=== PATIENT | male | born 1975 | race Caucasian/White ===

== ENCOUNTER 2018-07-10 11:08 | Emergency (ER) | payer OTHER, SELFPAY ==
[2018-07-10 11:14] VITALS: BP 145/76; PULSE 75; RESP 21; TEMP 36.6; O2SAT 97
--- NOTE | 2018-07-10 11:28 | ED.ABDPAIN ---
HPI - Abdominal Pain General Chief Complaint: Abdominal Pain Stated Complaint: Sharp pain L side abdomen Time Seen by Provider: 07/10/18 11:18 Source: patient Mode of arrival: ambulatory Limitations: no limitations History of Present Illness HPI narrative: Patient is a 42-year-old male who presents with abdominal pain left side. He said of or 5 episodes of diarrhea yesterday but no vomiting. His he has not had any bloody diarrhea he has not had any fever no one else is sick at home. He has intense left-sided pain. He was initially seen by his PCP and sent to the ED for further evaluation. Pain is felt to be out of proportion. The he does state that every time he moves he has intense pain. The pain is nonradiating it is more in his left lateral side denies flank pain or painful urination or testicular pain. MD complaint: abdominal pain Onset (ago): day(s) Location: [facility] Quality: stabbing Radiation: none Related Data Home Medications Medication Instructions Recorded Confirmed esomeprazole magnesium [Nexium] 20 mg PO DAILY 07/10/18 07/10/18 terbinafine HCl 1 tab PO DAILY 07/10/18 07/10/18 Allergies Allergy/AdvReac Type Severity Reaction Status Date / Time No Known Drug Allergies Allergy Verified 07/10/18 11:56 Review of Systems Review of Systems GENERAL: Denies chills, fatigue, malaise, fever, sweats, travel HEENT: Denies sinus pain, ear pain, sore throat, difficulty swallowing, neck pain RESPIRATORY: Denies dyspnea, cough, wheezing, hemoptysis, sputum. CARDIOVASCULAR: Denies chest pain, palpitations, orthopnea, edema GASTROINTESTINAL: See HPI : Denies dysuria, frequency, incontinence, hematuria, urinary retention, flank pain. MUSCULOSKELETAL: Denies weakness, joint pain, or bony pain SKIN: No rash, no erythema, no pruritus NEUROLOGIC: Denies weakness, dizziness, headache, numbness, change in speech, confusion PSYCHIATRIC: No concerning psychosocial issues. 12 point review of systems is negative except for those stated above and HPI PFSH Medical History Healthy adult (Acute) Social History Smoking Status: Never smoker Exam Initial Vital Signs Initial Vital Signs: Vital Signs Temperature 97.8 F 07/10/18 11:14 Pulse Rate 75 07/10/18 11:14 Respiratory Rate 21 07/10/18 11:14 Blood Pressure 145/76 H 07/10/18 11:14 Pulse Oximetry 97 07/10/18 11:14 GENERAL: Overweight well-appearing male in no acute distress HEENT: Head atraumatic,EOMI, pupils reactive, face symmetric, moist mucous membranes CARDIOVASCULAR: Regular rate and rhythm without murmurs, rubs or gallops. RESPIRATORY: Breath sounds equal bilaterally, no wheezes rales or rhonchi. ABDOMEN: Soft, tender left side no left upper quadrant pain no guarding no rebound normal bowel sounds no lower quadrant pain : No CVA tenderness EXTREMITIES: Normal range of motion, no clubbing or edema. Neurovascularly intact NEUROLOGICAL: Alert and oriented x4.Normal gait and speech. SKIN: Warm, dry, no laceration, no petechiae, no rashes or lesions. Course Orders Ordered: ED Orders 07/10/18 11:36 CT abdomen pelvis w con Stat 07/10/18 11:50 Complete Blood Count AUTO DIFF Stat Comprehensive Metabolic Panel Stat Lipase Stat Discontinued Medications Acetaminophen (Tylenol) 975 mg PO NOW ONE Stop: 07/10/18 13:33 Last Admin: 07/10/18 13:37 Dose: 975 mg Sodium Chloride (Normal Saline 0.9%) 1,000 mls @ 1,000 mls/hr IV CONT DAMION Last Infusion: 07/10/18 13:28 Dose: 0 mls/hr Admin: 07/10/18 11:58 Dose: 1,000 mls/hr Ketorolac Tromethamine (Toradol) 30 mg IV NOW ONE Stop: 07/10/18 11:34 Last Admin: 07/10/18 11:50 Dose: 30 mg Vital Signs - 8 hr 07/10/18 11:14 07/10/18 12:40 07/10/18 14:03 Temperature 97.8 F Pulse Rate 75 60 67 Respiratory Rate 21 18 14 Blood Pressure 145/76 H 136/72 Blood Pressure [Right Arm] 118/61 Pulse Oximetry 97 95 97 MDM - Abdominal Pain Lab Data Attestation: I reviewed the patient's lab results. Result diagrams: 07/10/18 11:50 07/10/18 11:50 Lab Results 07/10/18 07/10/18 Range/Units 11:50 11:50 WBC 5.7 (4.5-11.0) X10^3/uL RBC 4.85 (4.5-5.9) X10^6/uL Hgb 14.5 (13.5-17.5) g/dL Hct 40.9 L (41-53) % MCV 84.2 (80-100) fL MCH 29.8 (26-34) PG MCHC 35.4 (30-36) % RDW 13.5 (11.6-14.8) % Plt Count 192 (150-400) X10^3/uL Neut % (Auto) 60.1 (50-75) % Lymph % (Auto) 29.8 (25-40) % [place] % (Auto) 7.8 (3-14) % Eos % (Auto) 1.6 L (2-4) % Baso % (Auto) 0.7 (0-2) % Neut # (Auto) 3400 (5130-2855) /uL Sodium 142 (137-145) mmol/L Potassium 4.2 (3.4-5.1) mmol/L Chloride 104 (98-107) mmol/L Carbon Dioxide 30 (22-32) mmol/L BUN 15 (9-20) mg/dL Creatinine 0.90 (0.66-1.25) mg/dL Estimated GFR > 60.0 (>60) mL/min BUN/Creatinine Ratio 16.7 (6-22) Glucose 126 H (70-100) mg/dL Calcium 9.2 (8.4-10.2) mg/dL Total Bilirubin 1.1 (0.2-1.3) mg/dL AST 29 (17-59) IU/L ALT 50 (21-72) IU/L Alkaline Phosphatase 67 (38-126) U/L Total Protein 6.6 (6.3-8.2) g/dL Albumin 3.9 (3.5-5.0) g/dL Globulin 2.7 (1.7-4.1) g/dL Albumin/Globulin Ratio 1.4 (1.0-2.8) Lipase 56 (23-300) U/L Point of care testing: Urine Dip Bedside Urine Glucose Negative Bedside Urine Bilirubin - Negative Bedside Urine Ketone - Negative Urine Specific [place] 1.030 Bedside Urine Occult Blood - Negative Bedside Urine pH 6.0 Bedside Urine Protein - Negative Bedside Urine Urobilinogen - Negative Bedside Urine Nitrite - Negative Bedside Urine Leukocytes - Negative Esterase Imaging Data CT scan - abdomen: Radiologist's impression: PROCEDURE: CT ABDOMEN PELVIS W CON INDICATIONS: Sudden onset of leg sided abdominal pain this morning TECHNIQUE: After the administration of oral and intravenous contrast, 5 mm thick sections acquired from the diaphragms to the symphysis. 5 mm thick coronal and sagittal reformats were performed. For radiation dose reduction, the following was used: automated exposure control, adjustment of mA and/or kV according to patient size. COMPARISON: None. FINDINGS: Image quality: Excellent. ABDOMEN: Lung bases: Lung bases are clear. Heart size is normal. Solid organs: The liver is hypodense when compared to the spleen. No definite liver lesions are evident. There may be areas of fatty sparing within the inferior aspect of the lateral segment of the left hepatic lobe. There is no intrahepatic or extrahepatic biliary dilatation. Calcified gallstones are seen within the gallbladder. The pancreas, spleen, adrenals, and kidneys are within normal limits. There is no hydronephrosis. No definite renal calculi are evident. Peritoneum and bowel: The stomach, duodenum and remainder of the small bowel loops are nondilated. Moderate residual stool is seen throughout the colon, more prominent within the proximal aspect of the colon. There may be areas of colonic diverticulosis without diverticulitis. The appendix is well-visualized and normal in size. There is no free fluid, loculated fluid collection or free air. Moderate-sized fat containing periumbilical hernia is noted. Nodes and vessels: No retroperitoneal or mesenteric adenopathy. However, multiple tiny subcentimeter retroperitoneal and mesenteric lymph nodes are incidentally noted. Aorta and inferior vena cava are normal in caliber. Miscellaneous: No acute fracture or suspicious osseous lesion is evident. Mild/moderate degenerative changes of the lower lumbar spine are present. PELVIS: Genitourinary: The urinary bladder is decompressed with corresponding mild wall thickening. Along the anterior wall of the urinary bladder there is a 1.4 x 1.2 x 1.4 cm hyperdense nodule identified. The prostate is slightly heterogeneous, but normal in size. Miscellaneous: There is a fat containing right inguinal hernia. No significant left inguinal hernia is evident. There is no free fluid or loculated fluid collection. Tiny lymph nodes within the pelvis are noted. Bones: No suspicious bony lesions. No acute pelvic fractures are evident. Moderate degenerative changes of the pubis symphysis are noted. IMPRESSION: 1. No definite acute abnormality of the abdomen or pelvis. 2. 1.4 cm bladder mass. Cystoscopy is recommended for further evaluation. 3. Hepatic steatosis. 4. Cholelithiasis. 5. Colonic constipation. No obstruction. 6. Colonic diverticulosis without diverticulitis. 7. Moderate-sized fat containing periumbilical hernia. 8. Small fat-containing right inguinal hernia. Dictated by: Ricardo Bauer M.D. on 07/10/2018 at 12:00 [facility] Narrative Medical decision making narrative: Patient's abdomen is reexamined he has no right upper quadrant pain liver enzymes and bilirubin within normal limits. He is noted to have cholelithiasis do not think he has acute cholecystitis. He is also noted to have a mass in his bladder of 1.4 cm he has no blood in his urine. I discussed with him and gave him a copy of the CT report. He needs to follow up with Urology. I discussed all findings with the patient, Education has been performed regarding treatment plan, diagnosis, warning signs and symptoms and all concerns have been addressed. Verbally agree with and understood all of the above. Discharge Plan Departure Patient Disposition: Home Clinical Impression: Gastroenteritis Discharge Date/Time: 07/10/18 14:03 Interventions: ED Discharge Assessment Last Done: 07/10/18 14:03 Instructions: DI for Viral Gastroenteritis -- Adult Activity Restrictions/Additional Instructions: *You have been diagnosed with gastroenteritis *What to do: -gallbladder stones noted on CT, today not causing any problems, but may electively need surgery -bladder mass, this needs evaluation by Urology, the see your primary care provider for follow-up and referral you may be able to call Urology and schedule appointment herself. *Continue to take medications as directed Tylenol and ibuprofen as directed if needed for pain *Follow up with your primary care provider in 2-3 days Urology, call for appointment in 1-2 weeks *Return to ER if you should have increasing pain inability to tolerate fluids or any new, worsening or concerning symptoms Prescriptions: No Action terbinafine HCl 250 mg Tablet 1 tab PO DAILY RF: 0 esomeprazole magnesium [Nexium] 20 mg Capsule,Delayed Release(Dr/Ec) 20 mg PO DAILY RF: 0 Referrals: Mely Zuniga MD [Physician] - Padmini Tineo ARNP [Non-Staff] - Arcenio Ferrari MD [Non-Staff] - Stand Alone Forms: Work/School Restrictions
--- NOTE | 2018-07-10 11:36 | DI.CT.S_ITS ---
PROCEDURE: CT ABDOMEN PELVIS W CON INDICATIONS: Sudden onset of leg sided abdominal pain this morning TECHNIQUE: After the administration of oral and intravenous contrast, 5 mm thick sections acquired from the diaphragms to the symphysis. 5 mm thick coronal and sagittal reformats were performed. For radiation dose reduction, the following was used: automated exposure control, adjustment of mA and/or kV according to patient size. COMPARISON: None. FINDINGS: Image quality: Excellent. ABDOMEN: Lung bases: Lung bases are clear. Heart size is normal. Solid organs: The liver is hypodense when compared to the spleen. No definite liver lesions are evident. There may be areas of fatty sparing within the inferior aspect of the lateral segment of the left hepatic lobe. There is no intrahepatic or extrahepatic biliary dilatation. Calcified gallstones are seen within the gallbladder. The pancreas, spleen, adrenals, and kidneys are within normal limits. There is no hydronephrosis. No definite renal calculi are evident. Peritoneum and bowel: The stomach, duodenum and remainder of the small bowel loops are nondilated. Moderate residual stool is seen throughout the colon, more prominent within the proximal aspect of the colon. There may be areas of colonic diverticulosis without diverticulitis. The appendix is well-visualized and normal in size. There is no free fluid, loculated fluid collection or free air. Moderate-sized fat containing periumbilical hernia is noted. Nodes and vessels: No retroperitoneal or mesenteric adenopathy. However, multiple tiny subcentimeter retroperitoneal and mesenteric lymph nodes are incidentally noted. Aorta and inferior vena cava are normal in caliber. Miscellaneous: No acute fracture or suspicious osseous lesion is evident. Mild/moderate degenerative changes of the lower lumbar spine are present. PELVIS: Genitourinary: The urinary bladder is decompressed with corresponding mild wall thickening. Along the anterior wall of the urinary bladder there is a 1.4 x 1.2 x 1.4 cm hyperdense nodule identified. The prostate is slightly heterogeneous, but normal in size. Miscellaneous: There is a fat containing right inguinal hernia. No significant left inguinal hernia is evident. There is no free fluid or loculated fluid collection. Tiny lymph nodes within the pelvis are noted. Bones: No suspicious bony lesions. No acute pelvic fractures are evident. Moderate degenerative changes of the pubis symphysis are noted. IMPRESSION: 1. No definite acute abnormality of the abdomen or pelvis. 2. 1.4 cm bladder mass. Cystoscopy is recommended for further evaluation. 3. Hepatic steatosis. 4. Cholelithiasis. 5. Colonic constipation. No obstruction. 6. Colonic diverticulosis without diverticulitis. 7. Moderate-sized fat containing periumbilical hernia. 8. Small fat-containing right inguinal hernia. Dictated by: Ricardo Bauer M.D. on 07/10/2018 at 12:00 Approved by: Ricardo Bauer M.D. on 07/10/2018 at 12:10
[2018-07-10] MEDS: KETOROLAC 60 MG/2 ML VIAL 30 MG IV (11:50)
[2018-07-10] MEDS: SODIUM CHLORIDE 0.9% 1,000 ML 1000 ML IV (11:58)
[2018-07-10 12:00] LABS: Add Manual Diff / Slide Review NO; Basophils Percent Auto 0.7 % (0-2); Eosinophils Percent Auto 1.6 % (2-4); Hematocrit 40.9 % (41-53); Hemoglobin 14.5 g/dL (13.5-17.5); Lymphocytes Percent Auto 29.8 % (25-40); Mean Corpuscular HGB Conc 35.4 % (30-36); Mean Corpuscular Hemoglobin 29.8 PG (26-34); Mean Corpuscular Volume 84.2 fL (80-100); Monocytes Percent Auto 7.8 % (3-14); Neutrophils Absolute Auto 3400 /uL (3000-5900); Neutrophils Percent Auto 60.1 % (50-75); Platelet Count 192 X10^3/uL (150-400); Red Blood Cell Count 4.85 X10^6/uL (4.5-5.9); Red Cell Distribution Width 13.5 % (11.6-14.8); White Blood Cell Count 5.7 X10^3/uL (4.5-11.0)
[2018-07-10 12:17] LABS: Alanine Aminotransferase 50 IU/L (21-72); Albumin 3.9 g/dL (3.5-5.0); Albumin Globulin Ratio 1.4 (1.0-2.8); Alkaline Phosphatase 67 U/L (38-126); Aspartate Aminotransferase 29 IU/L (17-59); BUN Creatinine Ratio 16.7 (6-22); Bilirubin Total 1.1 mg/dL (0.2-1.3); Blood Urea Nitrogen 15 mg/dL (9-20); Calcium 9.2 mg/dL (8.4-10.2); Carbon Dioxide 30 mmol/L (22-32); Chloride 104 mmol/L (98-107); Estimated Glomerular Filt Rate > 60.0 mL/min (>60); Globulin 2.7 g/dL (1.7-4.1); Glucose 126 mg/dL (70-100); HEMOLYSIS < 15 (0-50); Lipase 56 U/L (23-300); Potassium 4.2 mmol/L (3.4-5.1); Sodium 142 mmol/L (137-145); Total Protein 6.6 g/dL (6.3-8.2)
[2018-07-10 12:40] VITALS: BP 118/61; PULSE 60; RESP 18; O2SAT 95
[2018-07-10] MEDS: ACETAMINOPHEN 325 MG TABLET 975 MG PO (13:37)
[2018-07-10 14:03] VITALS: BP 136/72; PULSE 67; RESP 14; O2SAT 97
--- NOTE | 2018-07-12 16:56 | PC.NURSE ---
Attempted follow up phone call. No answer at this time.
== END 2018-07-10 14:03 | disposition home or self-care (01) ==
PROVIDERS: Emergency Provider Emergency Medicine
DX: K52.9 Noninfective gastroenteritis and colitis, unspecified (principal)
CPT/HCPCS: 36591; 74177; 80053; 81003; 83690; 85025; 96361; 96374; 96375; 99283; 99285; J1885; Q9967

== ENCOUNTER 2018-08-01 12:11 | Day surgery (SDC) | payer OTHER, SELFPAY ==
[2018-07-27 09:21] VITALS: BMI 43.3
[2018-08-01] VITALS (7 sets, daily range): BP systolic 117–141; BP diastolic 67–91; PULSE 68–75; RESP 11–16; TEMP 36.2–36.6; O2SAT 92–95; BMI 42.2
[2018-08-01] MEDS: LACTATED RINGERS 1,000 ML 42 ML IV ×2 (13:00→17:14)
--- NOTE | 2018-08-01 14:42 | PM.PREOP ---
Pre-operative Note Interval Note Pre-op Check: Yes History & Physical Reviewed by Physician Changes: No
[2018-08-01] MEDS: CEFAZOLIN VIAL 2 GM in SODIUM CHLORIDE 0.9% 100 ML 200 ML IV (15:01)
--- NOTE | 2018-08-01 15:19 | SUR.OPER ---
Supine on padded OR bed, head on pillow, arms secured on padded arm boards at <90 degrees abduction, legs uncrossed, safety belt at thigh, tape over blanket over lower legs.
[2018-08-01] MEDS: BUPIVACAINE 0.5% (PF) VIAL 30 ML INJ (15:25)
--- NOTE | 2018-08-01 16:12 | SUR.PHASEI ---
UNABLE TO DO CIRC CHECKS DUE TO DRESSING AND BOOT
--- NOTE | 2018-08-01 16:17 | P.OP_ITS ---
Operative Date/Time/Diagnoses Date of procedure: 08/01/18 Time of procedure: 16:12 Pre-op diagnosis: Left plantar fasciitis Post-op diagnosis: same Procedure & Clinicians Procedure: Left endoscopic plantar fascia release Same procedure as scheduled: Yes Indications: Painful ongoing plantar fasciitis left foot. Conservative measures have failed to alleviate his pain and he wished to have surgical intervention this time. We spoke with the risks potential complications as well as expected outcomes. Consent was signed, no contraindications to the procedure at this time. Surgeon: Yarely Blanco Click Yes if Unassisted: Yes Anesthesia Type: General Operative Notes Closure Type: primary Specimen(s): none sent Estimated Blood Loss (mL): 5 Blood products transfused: none Tourniquet time (min): 18 Procedure in detail: The patient was brought to the operating room and placed on the operating table in supine position. Following induction of general anesthesia, local anesthesia was obtained to the patient's heel. It was then prepped and draped in usual aseptic manner. After verification of anesthesia the tourniquet was inflated to the ankle. An incision was made over the medial heel just distal to the medial calcaneal tubercle. After blunt dissection to the origin point of the medial fascial band , a fascial elevator was used to gently remove some of the fat from the fascial band. Once more fully isolated, the trochar and obturator were placed in the incision from medial to lateral. An incision was made laterally to allow it's exit. The canal was cleaned using cotton tipped applicators to allow better visualization. The arthroscope was inserted laterally and a probe medially. Pictures were taken of the fascia then the probe was replaced with a blade. While dorsiflexing the forefoot, approximately half of the plantar fascia was transected from the central to medial aspect. Underlying this was seen the muscle. Pictures taken. System rotated plantarly to verify that all fibers of the plantar fascia on that side had been released. Instrumentation removed. The area was irrigated with copious amounts of normal saline. The system was then removed. After the tourniquet was deflated, a prompt hyperemic response was seen to the foot. Closed skin with 4-0 nylon. The incisions were dressed with a sterile lightly compressive dressing and a postsurgical boot. The patient was transferred to the PACU with vital signs stable and vascular status intact. Complications: none Condition: stable Disposition: PACU Plan for aftercare: Following a period of postoperative monitoring, the patient will be discharged home on written and oral postoperative instructions including keeping the dressing dry and intact, avoiding significant ambulation to the foot. Icing and elevating the foot when seated at home. DVT prevention techniques have been reviewed. Weightbearing can commence to trial off of assistive devices starting around day 7. He will need to make sure he wears his boot for 3 weeks following the date of surgery while sleeping.
--- NOTE | 2018-08-01 16:22 | SUR.PHASEII ---
received pt from leela puente, ice placed behind knee and l foot elevated as ordered. called and is on her way here, vss, denies pain.
--- NOTE | 2018-08-01 16:55 | SUR.PHASEII ---
arrived, d/c instructions discussed, pt dressed when ready and left when ready in stable condition.
== END 2018-08-01 17:05 | disposition home or self-care (01) ==
PROVIDERS: PCP Nurse Practitioner Family; Visit Provider Podiatrist
PROC: (CPT 29893; principal; 2018-08-01 13:45)
DX: M72.2 Plantar fascial fibromatosis (principal)
CPT/HCPCS: 29893; J0690; J1100; J2405; J2704; J3010

== ENCOUNTER 2018-12-08 20:19 | Emergency (ER) | payer OTHER, SELFPAY ==
[2018-12-08 20:35] VITALS: BP 138/83; PULSE 97; RESP 16; TEMP 37; O2SAT 99
--- NOTE | 2018-12-08 20:38 | DI.RAD.S_ITS ---
PROCEDURE: XR ANKLE RT MIN 3V INDICATIONS: rolled right ankle TECHNIQUE: 3 views of the ankle were acquired. COMPARISON: None. FINDINGS: Bones: No fractures or dislocations. Ankle mortise is normally aligned. No suspicious bony lesions. Soft tissues: Small tibiotalar joint effusion. Moderate soft tissue swelling surrounding the ankle. IMPRESSION: 1. No acute fracture or dislocation of the right ankle. Consider followup radiographs in 7-10 days if there is continued clinical concern. 2. Soft tissue injury of the right ankle with small right ankle joint effusion and moderate right ankle soft tissue edema. Dictated by: Layton Fernandez M.D. on 12/08/2018 at 21:19 Approved by: Layton Fernandez M.D. on 12/08/2018 at 21:21
--- NOTE | 2018-12-08 21:08 | ED.LOWEXIN ---
HPI - Extremity Injury (Lower) <HONORIO Friend - Last Filed: 12/08/18 21:43> General Chief Complaint: Extremity Injury, Lower Stated Complaint: says he twisted his right ankle Time Seen by Provider: 12/08/18 20:25 Source: patient Mode of arrival: ambulatory Limitations: no limitations History of Present Illness HPI Narrative: 43 year old healthy male who is a nonsmoker for complaint of pain to his right ankle. He states that a couple hours ago he was stepping out of his truck when he accidentally stepped on a rock causing him to roll his ankle. Pain is to the lateral aspect of the right ankle. He reports increased pain with motion of the right ankle and also for weight-bearing. Decreased pain with rest and with elevation and ice. He denies any other injuries. No other concerns or complaints at this timeframe. Related Data Home Medications Medication Instructions Recorded Confirmed esomeprazole magnesium [Nexium] 20 mg PO DAILY 07/10/18 07/27/18 terbinafine HCl 1 tab PO DAILY 07/10/18 07/27/18 Allergies Allergy/AdvReac Type Severity Reaction Status Date / Time No Known Drug Allergies Allergy Verified 07/10/18 11:56 Review of Systems <HONORIO Friend Last Filed: 12/08/18 21:43> Eyes Denies change in vision, Denies eye discharge, Denies irritation and Denies loss of vision Cardiovascular Denies chest pain, Denies irregular heart rhythm, Denies lightheadedness, Denies palpitations, Denies dyspnea, Denies dyspnea on exertion and Denies orthopnea Respiratory Denies cough, Denies dyspnea, Denies dyspnea on exertion and Denies wheezing Gastrointestinal Gastrointestinal: Denies abdominal pain, Denies change in bowel habits, Denies diarrhea, Denies nausea and Denies vomiting Genitourinary Denies hematuria, Denies flank pain, Denies urinary incontinence and Denies urinary urgency Musculoskeletal Comments: Right ankle pain Integumentary/Breasts Denies pruritus, Denies erythema, Denies rash and Denies wounds Neurologic Denies confusion and Denies loss of vision Psychiatric Denies anxiety, Denies confusion, Denies depression, Denies homicidal ideation and Denies suicidal ideation Endocrine Denies palpitations Hematologic/Lymphatic Denies easy bruising Allergic/Immunologic Denies wheezing PFSH <HONORIO Friend - Last Filed: 12/08/18 21:43> Medical History Acid reflux (Acute) Bladder mass (Acute) Cholelithiasis (Acute) Diverticulosis of colon without diverticulitis (Acute) [place] teeth removed (Acute) Social History household members: spouse Smoking Status: Never smoker Social History household members: spouse Smoking Status: Never smoker Exam <HONORIO Friend - Last Filed: 12/08/18 21:43> Initial Vital Signs Initial Vital Signs: Vital Signs Temperature 98.6 F 12/08/18 20:35 Pulse Rate 97 H 12/08/18 20:35 Respiratory Rate 16 12/08/18 20:35 Blood Pressure 138/83 12/08/18 20:35 Pulse Oximetry 99 12/08/18 20:35 Const General: cooperative and well developed Nutritional Appearance: well nourished Orientation: alert, awake, oriented x3 and not confused HENOK Mouth: oral mucosae normal and moist mucous membranes Eyes Conjunctivae: conjunctivae normal Sclera: sclerae normal Pupils: PERRL EOM: EOM intact bilaterally Chest Chest: normal inspection of the chest Resp Effort & Inspection: normal respiratory effort, able to speak in complete sentences, no respiratory distress and no use of accessory muscles Auscultation: clear to auscultation bilaterally, no rales, no rhonchi and no wheezes Cardio Rate: regular rate Rhythm: regular rhythm Heart Sounds: no click, no gallops, no murmurs and no rubs Pulses: normal peripheral pulses Skin General: no rashes or lesions noted, No jaundice and No petechiae Neuro General: alert, oriented x3, gait normal and no focal motor deficits Speech: speech normal Extrem Other: right ankle with swelling to the lateral malleolus. No open lesions. No deformities. Distal sensation is intact. Distal range of motion is intact. Distal pulses are intact. <Billy Hale DO - Last Filed: 12/09/18 00:27> Initial Vital Signs Initial Vital Signs: Vital Signs Temperature 98.6 F 12/08/18 20:35 Pulse Rate 97 H 12/08/18 20:35 Respiratory Rate 16 12/08/18 20:35 Blood Pressure 138/83 12/08/18 20:35 Pulse Oximetry 99 12/08/18 20:35 Course <HONORIO Friend - Last Filed: 12/08/18 21:43> Orders Ordered: ED Orders 12/08/18 20:38 XR ankle RT min 3V Stat Vital Signs - 8 hr 12/08/18 20:35 12/08/18 22:30 Temperature 98.6 F Pulse Rate 97 H 88 Respiratory Rate 16 16 Blood Pressure 138/83 125/59 L Pulse Oximetry 99 98 <Billy Hale DO - Last Filed: 12/09/18 00:27> Orders Ordered: ED Orders 12/08/18 20:38 XR ankle RT min 3V Stat Vital Signs - 8 hr 12/08/18 20:35 12/08/18 22:30 Temperature 98.6 F Pulse Rate 97 H 88 Respiratory Rate 16 16 Blood Pressure 138/83 125/59 L Pulse Oximetry 99 98 MDM - Extremity Injury (Lower) <HONORIO Friend - Last Filed: 12/08/18 21:43> Imaging Data Right ankle : Radiologist's impression: [place] [address] XRay Report Signed Patient: Jeremy Ferrera II LMR#: [id number] : 1975Acct:[id number] Age/Sex: 43 / MDate of Service: 12/08/18 Loc: Accession Number: [id number] Procedure: XR ankle RT min 3V Ordering Provider: Billy Hale D.O. PROCEDURE: XR ANKLE RT MIN 3V INDICATIONS: rolled right ankle TECHNIQUE: 3 views of the ankle were acquired. COMPARISON: None. FINDINGS: Bones: No fractures or dislocations. Ankle mortise is normally aligned. No suspicious bony lesions. Soft tissues: Small tibiotalar joint effusion. Moderate soft tissue swelling surrounding the ankle. IMPRESSION: 1. No acute fracture or dislocation of the right ankle. Consider followup radiographs in 7-10 days if there is continued clinical concern. 2. Soft tissue injury of the right ankle with small right ankle joint effusion and moderate right ankle soft tissue edema. Dictated by: Layton Fernandez M.D. on 12/08/2018 at 21:19 Approved by: Layton Fernandez M.D. on 12/08/2018 at 21:21 MDM Narrative Medical decision making narrative: X-ray the right ankle was obtained and was negative for any acute fractures or findings. Signs and symptoms presents sprain to the right ankle. He is placed in a ankle splint for comfort and support. The use crutches for nonweightbearing the patient has. [id number] Tylenol or Motrin as needed for any discomfort. Ice and i elevation help with any swelling. Follow up with her primary care provider. If still painful after 7-10 days recommend repeat films to rule out occult fracture. Discharge Plan Departure Patient Disposition: Home Clinical Impression: Ankle sprain Qualifiers: Encounter type: initial encounter Involved ligament of ankle: unspecified ligament Laterality: right Qualified Code(s): S93.401A - Sprain of unspecified ligament of right ankle, initial encounter Discharge Date/Time: 12/08/18 22:31 Interventions: ED Discharge Assessment Last Done: 12/08/18 22:30 Instructions: DI for Ankle Sprain Activity Restrictions/Additional Instructions: X-ray the right ankle was obtained and was negative for any acute fractures or findings. Signs and symptoms presents sprain to the right ankle. He is placed in a ankle splint for comfort and support. The use crutches for nonweightbearing the patient has. [id number] Tylenol or Motrin as needed for any discomfort. Ice and i elevation help with any swelling. Follow up with her primary care provider. If still painful after 7-10 days recommend repeat films to rule out occult fracture. Prescriptions: No Action terbinafine HCl 250 mg Tablet 1 tab PO DAILY RF: 0 esomeprazole magnesium [Nexium] 20 mg Capsule,Delayed Release(Dr/Ec) 20 mg PO DAILY RF: 0 Referrals: Padmini Tineo ARNP [Primary Care Provider] - <Billy Hale DO - Last Filed: 12/09/18 00:27> Cosign ED Attending Bam Attestation: I was immediately available in the department for consultation. Documentation has been reviewed. I agree with assessment and plan.
--- NOTE | 2018-12-08 21:25 | ED_ITS ---
HPI - Extremity Injury (Lower) <HONORIO Friend - Last Filed: 12/08/18 21:43> General Chief Complaint: Extremity Injury, Lower Stated Complaint: says he twisted his right ankle Time Seen by Provider: 12/08/18 20:25 Source: patient Mode of arrival: ambulatory Limitations: no limitations History of Present Illness HPI Narrative: 43 year old healthy male who is a nonsmoker for complaint of pain to his right ankle. He states that a couple hours ago he was stepping out of his truck when he accidentally stepped on a rock causing him to roll his ankle. Pain is to the lateral aspect of the right ankle. He reports increased pain with motion of the right ankle and also for weight-bearing. Decreased pain with rest and with elevation and ice. He denies any other injuries. No other concerns or complaints at this timeframe. Related Data Home Medications Medication Instructions Recorded Confirmed esomeprazole magnesium [Nexium] 20 mg PO DAILY 07/10/18 07/27/18 terbinafine HCl 1 tab PO DAILY 07/10/18 07/27/18 Allergies Allergy/AdvReac Type Severity Reaction Status Date / Time No Known Drug Allergies Allergy Verified 07/10/18 11:56 Review of Systems <HONORIO Friend Last Filed: 12/08/18 21:43> Eyes Denies change in vision, Denies eye discharge, Denies irritation and Denies loss of vision Cardiovascular Denies chest pain, Denies irregular heart rhythm, Denies lightheadedness, Denies palpitations, Denies dyspnea, Denies dyspnea on exertion and Denies orthopnea Respiratory Denies cough, Denies dyspnea, Denies dyspnea on exertion and Denies wheezing Gastrointestinal Gastrointestinal: Denies abdominal pain, Denies change in bowel habits, Denies diarrhea, Denies nausea and Denies vomiting Genitourinary Denies hematuria, Denies flank pain, Denies urinary incontinence and Denies urinary urgency Musculoskeletal Comments: Right ankle pain Integumentary/Breasts Denies pruritus, Denies erythema, Denies rash and Denies wounds Neurologic Denies confusion and Denies loss of vision Psychiatric Denies anxiety, Denies confusion, Denies depression, Denies homicidal ideation and Denies suicidal ideation Endocrine Denies palpitations Hematologic/Lymphatic Denies easy bruising Allergic/Immunologic Denies wheezing PFSH <HONORIO Friend - Last Filed: 12/08/18 21:43> Medical History Acid reflux (Acute) Bladder mass (Acute) Cholelithiasis (Acute) Diverticulosis of colon without diverticulitis (Acute) [place] teeth removed (Acute) Social History household members: spouse Smoking Status: Never smoker Social History household members: spouse Smoking Status: Never smoker Exam <HONORIO Friend - Last Filed: 12/08/18 21:43> Initial Vital Signs Initial Vital Signs: Vital Signs Temperature 98.6 F 12/08/18 20:35 Pulse Rate 97 H 12/08/18 20:35 Respiratory Rate 16 12/08/18 20:35 Blood Pressure 138/83 12/08/18 20:35 Pulse Oximetry 99 12/08/18 20:35 Const General: cooperative and well developed Nutritional Appearance: well nourished Orientation: alert, awake, oriented x3 and not confused HENNJ Mouth: oral mucosae normal and moist mucous membranes Eyes Conjunctivae: conjunctivae normal Sclera: sclerae normal Pupils: PERRL EOM: EOM intact bilaterally Chest Chest: normal inspection of the chest Resp Effort & Inspection: normal respiratory effort, able to speak in complete sentences, no respiratory distress and no use of accessory muscles Auscultation: clear to auscultation bilaterally, no rales, no rhonchi and no wheezes Cardio Rate: regular rate Rhythm: regular rhythm Heart Sounds: no click, no gallops, no murmurs and no rubs Pulses: normal peripheral pulses Skin General: no rashes or lesions noted, No jaundice and No petechiae Neuro General: alert, oriented x3, gait normal and no focal motor deficits Speech: speech normal Extrem Other: right ankle with swelling to the lateral malleolus. No open lesions. No deformities. Distal sensation is intact. Distal range of motion is intact. Distal pulses are intact. <Billy Hale DO - Last Filed: 12/09/18 00:27> Initial Vital Signs Initial Vital Signs: Vital Signs Temperature 98.6 F 12/08/18 20:35 Pulse Rate 97 H 12/08/18 20:35 Respiratory Rate 16 12/08/18 20:35 Blood Pressure 138/83 12/08/18 20:35 Pulse Oximetry 99 12/08/18 20:35 Course <HONORIO Friend - Last Filed: 12/08/18 21:43> Orders Ordered: ED Orders 12/08/18 20:38 XR ankle RT min 3V Stat Vital Signs - 8 hr 12/08/18 20:35 12/08/18 22:30 Temperature 98.6 F Pulse Rate 97 H 88 Respiratory Rate 16 16 Blood Pressure 138/83 125/59 L Pulse Oximetry 99 98 <Billy Hale DO - Last Filed: 12/09/18 00:27> Orders Ordered: ED Orders 12/08/18 20:38 XR ankle RT min 3V Stat Vital Signs - 8 hr 12/08/18 20:35 12/08/18 22:30 Temperature 98.6 F Pulse Rate 97 H 88 Respiratory Rate 16 16 Blood Pressure 138/83 125/59 L Pulse Oximetry 99 98 MDM - Extremity Injury (Lower) <HONORIO Friend - Last Filed: 12/08/18 21:43> Imaging Data Right ankle : Radiologist's impression: [place] [address] XRay Report Signed Patient: Jeremy Ferrera II LMR#: [id number] : 1975Acct:[id number] Age/Sex: 43 / MDate of Service: 12/08/18 Loc: Accession Number: [id number] Procedure: XR ankle RT min 3V Ordering Provider: Billy Hale D.O. PROCEDURE: XR ANKLE RT MIN 3V INDICATIONS: rolled right ankle TECHNIQUE: 3 views of the ankle were acquired. COMPARISON: None. FINDINGS: Bones: No fractures or dislocations. Ankle mortise is normally aligned. No suspicious bony lesions. Soft tissues: Small tibiotalar joint effusion. Moderate soft tissue swelling surrounding the ankle. IMPRESSION: 1. No acute fracture or dislocation of the right ankle. Consider followup radiographs in 7-10 days if there is continued clinical concern. 2. Soft tissue injury of the right ankle with small right ankle joint effusion and moderate right ankle soft tissue edema. Dictated by: Layton Fernandez M.D. on 12/08/2018 at 21:19 Approved by: Layton Fernandez M.D. on 12/08/2018 at 21:21 MDM Narrative Medical decision making narrative: X-ray the right ankle was obtained and was negative for any acute fractures or findings. Signs and symptoms presents sprain to the right ankle. He is placed in a ankle splint for comfort and support. The use crutches for nonweightbearing the patient has. [id number] Tylenol or Motrin as needed for any discomfort. Ice and i elevation help with any swelling. Follow up with her primary care provider. If still painful after 7-10 days recommend repeat films to rule out occult fracture. Discharge Plan Departure Patient Disposition: Home Clinical Impression: Ankle sprain Qualifiers: Encounter type: initial encounter Involved ligament of ankle: unspecified ligament Laterality: right Qualified Code(s): S93.401A - Sprain of unspecified ligament of right ankle, initial encounter Discharge Date/Time: 12/08/18 22:31 Interventions: ED Discharge Assessment Last Done: 12/08/18 22:30 Instructions: DI for Ankle Sprain Activity Restrictions/Additional Instructions: X-ray the right ankle was obtained and was negative for any acute fractures or findings. Signs and symptoms presents sprain to the right ankle. He is placed in a ankle splint for comfort and support. The use crutches for nonweightbearing the patient has. [id number] Tylenol or Motrin as needed for any discomfort. Ice and i elevation help with any swelling. Follow up with her primary care provider. If still painful after 7-10 days recommend repeat films to rule out occult fracture. Prescriptions: No Action terbinafine HCl 250 mg Tablet 1 tab PO DAILY RF: 0 esomeprazole magnesium [Nexium] 20 mg Capsule,Delayed Release(Dr/Ec) 20 mg PO DAILY RF: 0 Referrals: Padmini Tineo ARNP [Primary Care Provider] - <Billy Hale DO - Last Filed: 12/09/18 00:27> Cosign ED Attending Rachelleature Attestation: [facility] Documentation has been reviewed. I agree with assessment and plan.
[2018-12-08 22:30] VITALS: BP 125/59; PULSE 88; RESP 16; O2SAT 98
== END 2018-12-08 22:31 | disposition home or self-care (01) ==
PROVIDERS: Emergency Provider Nurse Practitioner Family; PCP Nurse Practitioner Family
DX: S93.401A Sprain of unspecified ligament of right ankle, initial encounter (principal)
CPT/HCPCS: 73610; 99282; 99283

== ENCOUNTER 2019-03-22 11:12 | Day surgery (SDC) | payer OTHER, SELFPAY ==
[2019-03-07 07:52] VITALS: BMI 43.4
[2019-03-22] VITALS (12 sets, daily range): BP systolic 121–141; BP diastolic 65–85; PULSE 68–86; RESP 10–179; TEMP 35.9–36.4; O2SAT 91–98; BMI 43.9
[2019-03-22] MEDS: LACTATED RINGERS 1,000 ML 42 ML IV ×2 (11:51→14:40)
--- NOTE | 2019-03-22 12:36 | PM.PREOP ---
Pre-operative Note Interval Note History & Physical reviewed/Exam performed by Physician: Yes Changes to H&P: No
--- NOTE | 2019-03-22 12:41 | P.OP_ITS ---
Operative Date/Time/Diagnoses Date of procedure: 03/22/19 Time of procedure: 12:36 Pre-op diagnosis: Left tarsal tunnel syndrome, neuritis Post-op diagnosis: same Procedure & Clinicians Procedure: Left tarsal tunnel release, decompression abductor canal Same procedure as scheduled: Yes Indications: Painful left foot and ankle nerve symptoms, conservative measures failed to alleviate his pain, he wished to have surgical intervention at this time. Surgeon: Yarely Blanco Click Yes if Unassisted: Yes Anesthesia Type: General Operative Notes Closure Type: primary Specimen(s): none sent Estimated Blood Loss (mL): 20 Blood products transfused: none Procedure in detail: The patient was brought to the operating room and placed on the operating table in the supine position. The tourniquet was placed about the thigh. Well padded appropriately aligned. After induction of general anesthesia the foot and ankle were prepped and draped in the usual aseptic manner. The tourniquet was inflated. He was padded appropriately in a slightly frog-legged position on the left side. After check of anesthesia an incision was made over the medial ankle at the level of the tarsal tunnel. The incision was deepened through subcutaneous tissues being careful to identify and retract all vital neural and vascular structures. All bleeders were cauterized and ligated as necessary. The retinaculum was noted to be extremely tight and almost scarred into and over neurovascular bundle. I began careful release of retinaculum and identified the tendinous components and then the neurovascular bundle. The nerve was shown to be not bright and shiny but almost with a fibrosis around it. It had adhered to 2 areas of enlargement of the vein right beside it, and the engorged portions of the vein were tied off and cauterized. It regained a little more of its [place] formal I was able to take some of the scarred tissue off of it and more distal and more proximal. I did not see any bony malformations putting pressure across this area. I extended the release distally following the nerve into the abductor canal area. The muscle belly was noted and the release was brought up to that point. The ankle and toes were flexed and extended to verify no areas catching and the area was irrigated with copious amounts of normal sterile saline. The tourniquet was deflated, prompt hyperemic response seen to the foot and ankle. Dexamethasone phosphate was draped over the course of the nerve and subcutaneous closure was performed using Vicryl. Three 0 nylon to the skin. Lightly compressive dressing was placed on the foot and into the boot with stockinette and Juan Jose wraps. He was then transferred to PACU with vital signs stable and vascular status intact to the foot. Complications: none Condition: stable Disposition: PACU Plan for aftercare: Following a period of postoperative monitoring, the patient be discharged home on written and oral postoperative instructions including lana ping the dressing dry and intact, avoiding significant ambulation on the foot, icing and elevating the foot when seated home. DVT prevention techniques have been reviewed. For the 1st postoperative visit the dressing will be changed and close to the 3rd postoperative week we will likely remove the sutures. In general, range of motion okay to begin starting the 1st postoperative day gently at the ankle anesthetic general motion. He should be mostly nonweightbearing until the sutures are removed.
[2019-03-22] MEDS: CEFAZOLIN 2 GM/100 ML FROZ.PIGGY IV (12:44)
--- NOTE | 2019-03-22 13:14 | SUR.OPER ---
Supine on padded OR bed, head on pillow, arms secured on padded arm boards at <90 degrees abduction, left leg is in frog position, on pillow and blankets under control of surgeon, bump under left hip, safety belt at upper thighs, tape over blanket over right lower leg.
[2019-03-22] MEDS: BUPIVACAINE 0.5% (PF) VIAL 10 ML INJ (13:25)
[2019-03-22] MEDS: DEXAMETHASONE 10 MG/ML VIAL 4 MG INJ (13:26)
[2019-03-22] MEDS: fentaNYL 100 MCG/2 ML INJ 50 MCG IV ×2 (14:51→15:10)
[2019-03-22] MEDS: HYDROCODONE/ACET 5/325 TABLET 1 TAB PO (15:31)
[2019-03-22] MEDS: hydrOXYzine 50 MG/ML INJ 25 MG IM (16:07)
== END 2019-03-22 16:51 | disposition home or self-care (01) ==
PROVIDERS: PCP Nurse Practitioner Family; Visit Provider Podiatrist
PROC: (CPT 28035; principal; 2019-03-22 12:15)
DX: G57.52 Tarsal tunnel syndrome, left lower limb (principal); G57.62 Lesion of plantar nerve, left lower limb; R20.2 Paresthesia of skin; M72.2 Plantar fascial fibromatosis
CPT/HCPCS: 28035; J0690; J1100; J2250; J2405; J2704; J3010; J3410

== ENCOUNTER → 2019-07-29 10:07 | Outpatient (CLI) | payer OTHER, SELFPAY ==
[2019-07-29 11:58] LABS: Liquefaction Semen YES (YES); Volume Semen 1.5 (1.0-5.0)
[2019-07-29 11:59] LABS: Sperm Count 65 x10^6/mL (20-150); Sperm Morphology 29 %ABNORM (0-30); Sperm Motility 65% % Motile
== END ==
PROVIDERS: PCP Nurse Practitioner Family; Visit Provider Nurse Practitioner Family
DX: Z31.41 Encounter for fertility testing (principal)
CPT/HCPCS: 89320

== ENCOUNTER → 2019-09-10 14:53 | Outpatient (CLI) | payer OTHER, SELFPAY ==
--- NOTE | 2019-09-10 | DI.RAD.S_ITS ---
PROCEDURE: XR LUMBAR SPINE MIN 4V INDICATIONS: Low Back Pain/Left Foot Pain TECHNIQUE: 5 views of the lumbar spine were acquired. COMPARISON: None. FINDINGS: Bones: 5 nonrib-bearing vertebrae are present. There is normal bony alignment. No vertebral body compression fractures. No suspicious bony lesions. Multilevel disc degeneration, moderate to severe at L3-L4, L4-L5 and L5-S1 levels. Moderate lower lumbar spine facet joint arthropathy. Soft tissues: Overlying bowel gas pattern is normal. No suspicious soft tissue calcifications. Oblique images: No pars defects. IMPRESSION: Multilevel spondylosis. Dictated by: Valentín BALL Interpreted: Caty Judd MD on 09/10/2019 at 17:43 Approved by: Caty Judd M.D. on 09/10/2019 at 18:38
--- NOTE | 2019-09-10 | DI.RAD.S_ITS ---
PROCEDURE: XR PELVIS 1-2V INDICATIONS: Low Back Pain/Left Foot Pain TECHNIQUE: 2 view(s) of the pelvis acquired. COMPARISON: None. FINDINGS: Bones: No fractures or dislocations. No suspicious bony lesions. Mild joint narrowing with periarticular osteophyte formation. Soft tissues: Visualized bowel gas pattern is normal. No suspicious soft tissue calcifications. IMPRESSION: Mild symmetric hip joint degeneration. Dictated by: Valentín BALL Interpreted: Caty Judd MD on 09/10/2019 at 17:44 Approved by: Caty Judd M.D. on 09/10/2019 at 18:38
== END ==
PROVIDERS: PCP Nurse Practitioner Family; Visit Provider Psychiatry & Neurology Neurology
DX: M54.5 Low back pain (principal); M79.672 Pain in left foot; M47.816 Spondylosis without myelopathy or radiculopathy, lumbar region; M16.10 Unilateral primary osteoarthritis, unspecified hip; R20.0 Anesthesia of skin
CPT/HCPCS: 72110; 72170

== ENCOUNTER 2019-11-12 16:26 | Emergency (ER) | payer OTHER, SELFPAY ==
[2019-11-12 16:34] VITALS: BP 125/81; PULSE 75; RESP 18; TEMP 36.7; O2SAT 98
--- NOTE | 2019-11-12 17:18 | ED.BACK ---
HPI - Back Pain/Injury General Chief Complaint: Back Pain/Injury Stated Complaint: through his back out Time Seen by Provider: 11/12/19 16:59 Source: patient Mode of arrival: Ambulatory Limitations: no limitations History of Present Illness HPI Narrative: 44-year-old male here for evaluation of right-sided back pain. He states that it started about noon today. He was moving some boxes. Did a twisting movement and had sudden onset of pain. Has had lower back pain in the past. Has not tried anything for the symptoms prior to arrival. No urinary symptoms no change in bowel. No skin changes. Related Data Home Medications Medication Instructions Recorded Confirmed esomeprazole magnesium [Nexium] 20 mg PO DAILY 07/10/18 03/22/19 Previous Rx's Medication Instructions Recorded lidocaine 1 patch TOP DAILY #1 each 11/12/19 Allergies Allergy/AdvReac Type Severity Reaction Status Date / Time No Known Drug Allergies Allergy Verified 03/22/19 11:32 Review of Systems Constitutional Constitutional: Denies fever(s) and Denies headache(s) ENT Ears, Nose, Mouth, and Throat: Denies headache(s) Cardiovascular Cardiovascular: Denies chest pain and Denies dyspnea Respiratory Respiratory: Denies dyspnea Gastrointestinal Gastrointestinal: Denies abdominal pain Musculoskeletal Musculoskeletal: Reports back pain and Denies radiating pain into limb Integumentary/Breasts Skin/Breast: Denies lesions and Denies rash Neurologic Neurologic: Denies behavioral changes and Denies headache(s) Psychiatric Psychiatric: Denies behavioral changes Hematologic/Lymphatic Hematologic/Lymphatic: Denies easy bleeding and Denies easy bruising Patient History Medical History Acid reflux (Acute) Bladder mass (Acute) Cholelithiasis (Acute) Diverticulosis of colon without diverticulitis (Acute) Social History household members: spouse Smoking Status: Never smoker Smoking Status: Never smoker alcohol intake frequency: 0-2 drinks per day Substance Use Type: does not use Exam Initial Vital Signs Initial Vital Signs: Vital Signs Temperature 98.0 F 11/12/19 16:34 Pulse Rate 75 11/12/19 16:34 Respiratory Rate 18 11/12/19 16:34 Blood Pressure 125/81 11/12/19 16:34 Pulse Oximetry 98 11/12/19 16:34 Const General: cooperative, comfortable and well developed Limitations: mental status not altered Resp Effort & Inspection: normal respiratory effort Cardio Rate: regular rate Back/Spine/Pelvis Back: normal to inspection and No CVA tenderness Thoracic/Lumbar Spine: paraspinal tenderness (Right paraspinal lumbar), No thoracic spinal tenderness and No lumbar spinal tenderness Skin Lesions: no lesions Rashes: no rashes Neuro General: alert and awake Cognition: normal cognition Speech: speech normal Extrem General: normal to inspection and capillary refill normal Course Orders Ordered: Discontinued Medications Ketorolac Tromethamine (Toradol) 30 mg IM NOW ONE Stop: 11/12/19 17:19 Last Admin: 11/12/19 17:31 Dose: 30 mg Documented by: CARLOS EDUARDO Vital Signs Vital signs: Vital Signs - 8 hr 11/12/19 16:34 Temperature 98.0 F Pulse Rate 75 Respiratory Rate 18 Blood Pressure 125/81 Pulse Oximetry 98 MDM - Back Pain/Injury MDM Narrative Medical decision making narrative: Patient has lower back pain but no other red flag symptoms concerning for cauda equina. No trauma. Low suspicion for fracture. I do suspect this is musculoskeletal. Was given Toradol. He stated that he would like to stay away from any muscle relaxers. We did discuss conservative treatments. Will send home with lidocaine patches. He is given return precautions and follow-up instructions. He expressed understanding and agreement plan. Discharge Plan Departure Patient Disposition: Home Clinical Impression: Strain of lumbar region Qualifiers: Encounter type: initial encounter Qualified Code(s): S39.012A - Strain of muscle, fascia and tendon of lower back, initial encounter Instructions: DI for Back Strain or Sprain Activity Restrictions/Additional Instructions: Recommend that you stay as active as possible. You can do stretching in use ice/heat. Contact your primary provider for follow-up. Return to the emergency department for any new or worsening symptoms Prescriptions: New lidocaine 5 % adhesive patch,medicated 1 patch TOP DAILY Qty: 1 RF: 0 No Action esomeprazole magnesium [Nexium] 20 mg Capsule,Delayed Release(Dr/Ec) 20 mg PO DAILY RF: 0 Referrals: Padmini Tineo ARNP [Primary Care Provider] -
[2019-11-12] MEDS: KETOROLAC 60 MG/2 ML VIAL 30 MG IM (17:31)
[2019-11-12 17:55] VITALS: BP 134/76; PULSE 105; RESP 20; O2SAT 98
== END 2019-11-12 17:59 | disposition home or self-care (01) ==
PROVIDERS: Emergency Provider Emergency Medicine; PCP Nurse Practitioner Family
DX: S39.012A Strain of muscle, fascia and tendon of lower back, initial encounter (principal)
CPT/HCPCS: 96372; 99283; J1885

== ENCOUNTER → 2020-10-28 08:50 | Outpatient (CLI) | payer OTHER, SELFPAY ==
[2020-10-28 11:42] LABS: COVID19 -Nasal RAPID Negative (Negative)
== END ==
PROVIDERS: PCP Nurse Practitioner Family; Visit Provider Nurse Practitioner
DX: Z20.822 Contact with and (suspected) exposure to COVID-19 (principal)
CPT/HCPCS: 87635

== ENCOUNTER 2020-10-30 09:29 | Day surgery (SDC) | payer OTHER, SELFPAY ==
[2020-10-30] VITALS (23 sets, daily range): BP systolic 116–136; BP diastolic 69–93; PULSE 63–91; RESP 12–19; TEMP 36.4–37; O2SAT 88–98; BMI 44.9
[2020-10-30] MEDS: LACTATED RINGERS 1,000 ML 42 ML IV ×2 (09:54→12:25)
--- NOTE | 2020-10-30 09:55 | SUR.PREOP ---
IV at 42ml/h per anesthesia protocol
[2020-10-30] MEDS: CEFAZOLIN 2 GM/100 ML FROZ.PIGGY IV (11:16)
--- NOTE | 2020-10-30 11:17 | PM.PREOP ---
Pre-operative Note COVID-19 COVID-19 status: Negative Interval Note History & Physical reviewed/Exam performed by Physician: Yes Changes to H&P: No
--- NOTE | 2020-10-30 11:18 | P.OP_ITS ---
Operative Date/Time/Diagnoses Date of procedure: 10/30/20 Time of procedure: 11:18 Pre-op diagnosis: Left tarsal tunnel syndrome, neuritis of the foot/ankle, and possible fibrosis of the flexor tendons of the foot Post-op diagnosis: same Procedure & Clinicians Procedure: Left tarsal tunnel canal distal release into madhavi pedis Left foot release of adhesions along flexor tendons at knot of Tan Same procedure as scheduled: Yes Indications: Persistent painful ankle and foot with indications of possible further constriction of the distal tarsal tunnel and fibrosis of the flexor tendons at the knot of Tan. Conservative measures failed to alleviate his pain and he wished to have surgical intervention at this time. We spoke of risks, po tential complications, expected outcomes. Consent is signed, no contraindications to the procedures at this time. Surgeon: Yarely Blanco Click Yes if Unassisted: Yes Anesthesia Type: General Operative Notes Closure Type: primary Specimen(s): none sent Estimated Blood Loss (mL): 30 Blood products transfused: none Tourniquet time (min): 59 Procedure in detail: The patient was brought to the operating room and placed on the operating table in the supine position. Tourniquet was placed about the thigh. Well padded appropriately aligned as he was moved into a slight frog-leg position on the left side. After induction of general anesthesia the foot and ankle were prepped and draped in the usual aseptic manner. Just anterior to the prior incision along the tarsal tunnel, after marking off the posterior tibial artery in this location, an incision was made about 2 cm posterior to the posterior margin of the medial malleolus. It was somewhat curvilinear and extended distal and then continued plantar into the area just over the suspected fibrosis of the flexor tendons which was near the navicular. The incision was deepened through subcutaneous tissues encountering a large amount of scar tissue on its more central and proximal aspect. Care was taken to cauterize the bleeders and ligate those as necessary. There was quite a bit of scar tissue that was able to be released and it was soon shown the branches off of the posterior tibial nerve that were encapsulated within some of the scar tissue. At this point I decided to invoke the thigh tourniquet. After appropriate Esmarch exsanguination of the distal lower extremity, the tourniquet was inflated to the thigh. I was able to identify the abductor hallucis muscle and the fascia over it was released exposing the muscle belly. More proximally, I verified that the flexor retinaculum was released and any further scar tissue there was resected. Dissecting the branches off of the posterior tibial nerve I encountered the medial calcaneal nerve and then the plantar nerve splitting into the lateral and medial branches. The medial calcaneal was dissected out into the deeper tissue going into the medial heel and appeared to show no other areas of impingement. The medial and lateral plantar nerves were identified as they coursed under the belly of the abductor hallucis. Portion of the plantar lateral abductor hallucis fascia was released superiorly and as distal as possible. This muscle was verified and then opened dorsally and centrally to allow for further opening of the coursing of these plantar nerves. Next further dissection was carried distally where identifiable regions of the flexor hallucis and flexor digitorum were shown. Just under the navicular and slightly lateral to it I was able to feel a crossing of these and gently palpated using a Bertrand elevator the discrepancy between 1 versus the other. Movement of each of the toes confirmed their identity. I performed blunt dissection to release gently between these 2 sets of tendon components. The tourniquet was deflated, prompt hyperemic response was seen to the foot and ankle. The areas were irrigated with copious amounts of normal sterile saline. Further review of the branches of the posterior tibial nerve as above were identified and dexamethasone phosphate was injected along that area. It was also injected into the segment near the fibrosis release at the knot of Tan. Subcutaneous closure performed using 3-0 and 4-0 Vicryl. Skin closure performed using 2-0 an d 3-0 nylon. Dressing placed on the foot consisted of Adaptic 4x4s Kerlix Juan Jose wrap stockinette and his postsurgical boot. He was transferred to the PACU with vital signs stable and vascular status intact. Complications: none Post-operative Condition: stable Disposition: PACU Plan for aftercare: Following a period of postoperative monitoring, the patient will be discharged home on written and oral postoperative instructions including keeping the dressing dry and intact, avoiding nonweightbearing to left foot, and elevating the foot when seated home. DVT prevention techniques have been reviewed. For the 1st postoperative visit the dressing will be changed and close to the 3rd to 4th postoperative week we will likely remove the sutures.
--- NOTE | 2020-10-30 12:04 | SUR.OPER ---
Addendum entered by Doyle Archuleta R.N. 10/30/20 12:05: Tape over blanket over right leg. Left leg rotater externally and flexed at the knee, gel bump under lower thigh, left leg draped free Original Note: Supine on padded OR bed, head on pillow, arms secured on padded arm boards at <90 degrees abduction, legs uncrossed, safety belt at thigh, tape over blanket over lower legs.
[2020-10-30] MEDS: BUPIVACAINE 0.5% (PF) VIAL 30 ML INJ (12:18)
[2020-10-30] MEDS: DEXAMETHASONE 10 MG/ML VIAL IV (13:41)
[2020-10-30] MEDS: OXYCODONE/ACETAMINOPHEN 5/325 TABLET 1 TAB PO ×2 (15:17→16:02)
--- NOTE | 2020-10-30 15:31 | SUR.PHASEI ---
report received, assume care.
[2020-10-30] MEDS: ONDANSETRON 4 MG/2 ML INJ IV (16:02)
== END 2020-10-30 17:01 | disposition home or self-care (01) ==
PROVIDERS: PCP Nurse Practitioner Family; Referring Provider Nurse Practitioner Family; Visit Provider Podiatrist
PROC: (CPT 28035; principal; 2020-10-30 10:45)
DX: G57.52 Tarsal tunnel syndrome, left lower limb (principal); M67.874 Other specified disorders of tendon, left ankle and foot; M76.61 Achilles tendinitis, right leg
CPT/HCPCS: 28222; 28035; J0690; J1100; J2250; J2405; J2704; J3010

== ENCOUNTER → 2022-12-16 09:58 | Outpatient (CLI) | payer OTHER, SELFPAY | PROVIDERS: PCP Nurse Practitioner Family; Visit Provider Registered Nurse | DX: J02.9 Acute pharyngitis, unspecified (principal) | CPT/HCPCS: 87070 ==

== ENCOUNTER → 2023-10-22 15:03 | Outpatient (CLI) | payer OTHER, SELFPAY ==
--- NOTE | 2023-10-22 15:06 | DI.RAD.S_ITS ---
PROCEDURE: XR CHEST 2V INDICATIONS: Cough TECHNIQUE: 2 views of the chest were acquired. COMPARISON: None. FINDINGS: Surgical changes and devices: None. Lungs and pleura: Subtle consolidation in the right mid lung, not well seen on lateral view. No pleural effusions or pneumothorax. Mediastinum: Mediastinal contours are normal. Heart size is normal. Bones and chest wall: No suspicious bony abnormalities. Soft tissues appear unremarkable. IMPRESSION: Subtle consolidation in the right mid lung, not well seen on lateral view. Findings may represent focal atelectasis or area of aspiration/infection. Recommend radiographic follow-up after clinical improvement to document resolution/improvement. Dictated by: Anaid Sanchez M.D. on 10/22/2023 at 21:34 Approved by: Anaid Sanchez M.D. on 10/22/2023 at 21:35
== END ==
LOC: DI 15:05
PROVIDERS: PCP Nurse Practitioner Family; Referring Provider Nurse Practitioner Family; Visit Provider Nurse Practitioner Family
DX: R05.9 Cough, unspecified (principal)
CPT/HCPCS: 71046

== ENCOUNTER 2025-07-14 12:31 | Day surgery (SDC) | payer OTHER, SELFPAY ==
--- NOTE | 2025-07-14 13:06 | PM.HP.IH.1 ---
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, left lower limb Paresthesia of skin Tarsal tunnel syndrome of left side Surgical History Am[place]on teeth removed Social History household members: spouse and family alcohol intake: never Meds Home Medications and Allergies Home Medications ?Medication ?Instructions ?Recorded ?Confirmed ?Type esomeprazole magnesium 20 mg 20 mg PO DAILY 07/10/18 07/14/25 History capsule,delayed release (Nexium) Allergies Allergy/AdvReac Type Severity Reaction Status Date / Time No Known Drug Allergies Allergy Verified 07/14/25 13:07 Exam Narrative Exam Narrative: Oropharynx free of lesions Chest clear to auscultation percussion Cardiac exam reveals no S3 or murmur Assessment & Plan Assessment & Plan narrative: Need for screening colonoscopy. Risks, benefits, alternatives have been explained. Time-Based Coding :: [TOTAL MINUTES] spent with patient and on the chart (including review of chart, obtaining history, exam, reviewing outside data, placing orders, documenting exam and treatment plan, and counseling patient) on [DATE]. [employer]or Document charge(s): No
[2025-07-14] MEDS: LACTATED RINGERS 1,000 ML 42 ML IV (13:07)
[2025-07-14 13:08] VITALS: BP 122/70; PULSE 60; RESP 16; TEMP 36.1; O2SAT 100
--- NOTE | 2025-07-14 13:09 | PM.OP.COLON ---
Operative Date/Time/Diagnoses Date of procedure: 07/14/25 Time of procedure: 13:59 Pre-op diagnosis: See indication and findings Post-op diagnosis: same Procedure & Clinicians Study performed: Colonoscopy Same procedure(s) as scheduled: Yes Indications: For screening Surgeon: Soy Gaitan Anesthesia Type: Other Procedure Notes SCOAP/Timeout: After informed Procedure in detail: After informed consent was obtained the patient was placed in left lateral decubitus position. Video colonoscope was introduced the rectum slowly advanced cecum. Preparation was good. On slow withdrawal mucosa was carefully examined. The scope was removed. The patient tolerated procedure well. Blood loss none Complications none Sedation mac Findings 1. Normal colonoscopy to cecum Patient should have follow-up colonoscopy in 10 years
[2025-07-14 13:54] VITALS: BP 119/50; PULSE 59; RESP 14; TEMP 36.2; O2SAT 96
[2025-07-14 13:55] VITALS: BP 118/50; PULSE 57; RESP 13; O2SAT 97
[2025-07-14 14:00] VITALS: BP 107/51; PULSE 54; RESP 13; O2SAT 98
[2025-07-14 14:15] VITALS: BP 106/55; PULSE 56; RESP 13; TEMP 36.2; O2SAT 100
== END 2025-07-14 14:30 | disposition home or self-care (01) ==
PROVIDERS: PCP Family Medicine; Referring Provider Internal Medicine Gastroenterology; Visit Provider Internal Medicine Gastroenterology
PROC: 0DJD8ZZ Inspection of Lower Intestinal Tract, Via Natural or Artificial Opening Endoscopic (ICD-10-PCS; CPT 45378; principal; 2025-07-14 14:00)
DX: Z12.11 Encounter for screening for malignant neoplasm of colon (principal)
CPT/HCPCS: 45378; J2704; J7120